=== PATIENT | female | born 1930 | race Caucasian/White ===

== ENCOUNTER 2017-04-13 05:09 | Inpatient (IN) | payer MEDICARE, OTHER ==
[~2017-04-13] VITALS: Ht 162.6 cm; Wt 57.6 kg
[2017-04-13] MEDS ORDERED: DONEPEZIL HCL 5 MG TABLET (05:29)
[2017-04-13] MEDS ORDERED: ATORVASTATIN 40 MG TABLET (05:29)
[2017-04-13] MEDS ORDERED: FUROSEMIDE 20 MG TABLET (05:29)
[2017-04-13] MEDS ORDERED: DILTIAZEM 180 MG (05:29)
[2017-04-13] MEDS ORDERED: DIGOXIN 125 MCG (05:29)
[2017-04-13] MEDS ORDERED: METOPROLOL TARTRATE 25 MG TAB (05:29)
[2017-04-13] MEDS ORDERED: IV NORMAL SALINE 1000 ML BAG IV ONE (06:00)
--- NOTE | 2017-04-13 06:00 | NUR ---
PT BIB . C/O COUGH X1 WEEK. HX OF TYPE 2 DM. UNSTEADY GAIT. USED WHEELCHAIR. A&OX4
--- NOTE | 2017-04-13 06:48 | NUR ---
Pt to room, changed into gown. EKG obtained and pt placed on monitor. Pt in rapid afib with runs of vtach. Dr. Peacock to bedside, pt moved to room 1b. Two IV's established. Lab at bedside.
[2017-04-13] MEDS ORDERED: PROCAINAMIDE HCL IV ONE (07:00)
--- NOTE | 2017-04-13 07:00 | NUR ---
Pharmacy called for the Procan
--- NOTE | 2017-04-13 07:04 | NUR ---
Pharmacy called, informed hospital does not carry this medication. Dr. Peacock notified.
--- NOTE | 2017-04-13 07:13 | NUR ---
Report given to ALCON Pittman
--- NOTE | 2017-04-13 07:17 | NUR ---
XRAY AT PT BEDSIDE
[2017-04-13] MEDS ORDERED: LIDOCAINE DRIP 2GM /D5W 500 ML 500 ML IV PRN (07:30)
[2017-04-13] MEDS ORDERED: LIDOCAINE 2% 100 MG/5 ML SYRINGE IV ONE (07:30)
[2017-04-13 07:39] LABS: BASOPHILS # (AUTO) 0.1 K/uL (0.0-8.0); BASOPHILS % (AUTO) 0.6 % (0.0-2.0); HEMATOCRIT 34.3 % (31.2-41.9); HEMOGLOBIN 11.6 g/dL (10.9-14.3); LYMPHOCYTES # (AUTO) 0.8 K/uL (20.0-40.0); LYMPHOCYTES % (AUTO) 9.2 % (20.5-51.5); MEAN CORPUSCULAR HEMOGLOBIN 30.1 uug (24.7-32.8); MEAN CORPUSCULAR HGB CONC 34 g/dL (32.3-35.6); MEAN CORPUSCULAR VOLUME 89.4 fL (75.5-95.3); MONOCYTES # (AUTO) 0.9 K/uL (2.0-10.0); MONOCYTES % (AUTO) 10.5 % (0.0-11.0); NEUTROPHILS % (AUTO) 79.7 % (38.5-71.5); PLATELET COUNT (AUTO) 152 K/uL (179-408); RED BLOOD CELL COUNT(AUTO) 3.84 MIL/uL (3.63-4.92); WHITE BLOOD COUNT (AUTO) 8.8 K/uL (3.8-11.8)
[2017-04-13] MEDS ORDERED: LIDOCAINE 2% 100 MG/5 ML SYRINGE ONE (07:46)
[2017-04-13] MEDS ORDERED: LIDOCAINE DRIP 2GM /D5W 500 ML 500 ML IV ONE (07:48)
[2017-04-13 07:55] LABS: CARBON DIOXIDE 26 mmol/L (21-32); CHLORIDE 101 mmol/L (98-107); CREATININE 0.9 mg/dL (0.6-1.3); GLUCOSE 143 mg/dL (74-106); POTASSIUM 3.6 mmol/L (3.5-5.1); UREA NITROGEN, BLOOD 16 mg/dL (7-18)
[2017-04-13 08:01] LABS: ALANINE AMINOTRANSFERASE 29 U/L (14-59); ALKALINE PHOSPHATASE 76 U/L (50-136); ASPARTATE AMINOTRANSFERASE 36 U/L (15-37); BILIRUBIN,DIRECT 0.4 mg/dL (0.0-0.2); BILIRUBIN,TOTAL 1.1 mg/dL (0.2-1.0); LIPASE 98 U/L (73-393); TOTAL PROTEIN, SERUM 6.3 g/dL (6.4-8.2)
[2017-04-13 08:07] LABS: DIGOXIN 0.3 ng/mL (0.9-2.0)
[2017-04-13] MEDS ORDERED: DILTIAZEM HCL 25 MG IV IV ONE ×2 (09:15→13:45)
[2017-04-13] MEDS ORDERED: DILTIAZEM HCL 25 MG IV ONE ×2 (09:27→14:07)
[2017-04-13] MEDS ORDERED: ATOR40TA PO (10:19)
[2017-04-13] MEDS ORDERED: DILT180T11 PO (10:19)
[2017-04-13] MEDS ORDERED: FURO20TA4 PO (10:19)
[2017-04-13] MEDS ORDERED: DONE5TAB34 PO (10:19)
[2017-04-13] MEDS ORDERED: ASPI-605 PO (10:19)
[2017-04-13] MEDS ORDERED: METF10002 PO (10:19)
[2017-04-13] MEDS ORDERED: METO25TA6 PO (10:19)
[2017-04-13] MEDS ORDERED: HYDROCODONE/APAP 5-325MG TABLET PO PRN (12:00)
[2017-04-13] MEDS ORDERED: MAGNESIUM HYDROXIDE 30 ML LIQUID UDC PO PRN (12:00)
[2017-04-13] MEDS ORDERED: ACETYLCYSTEINE 10% 4ML VIAL NEB ONE (12:00)
[2017-04-13] MEDS ORDERED: ONDANSETRON 4 MG/2 ML VIAL IV PRN (12:00)
[2017-04-13] MEDS ORDERED: LEVOFLOXACIN 750MG/D5W 750 MG in PREMIXED 1 EACH IV SCH (12:00)
[2017-04-13] MEDS ORDERED: IPRATROPIUM BROMIDE 0.5 MG/2.5 ML NEBU NEB ONE (12:00)
[2017-04-13] MEDS ORDERED: Z GUARD REMEDY PASTE 57 GM TUBE TOP PRN (12:00)
[2017-04-13] MEDS: ALBUTEROL SULFATE 2.5 MG/ 0.5 ML NEBU NEB SCH ×4 (12:15→23:05)
[2017-04-13] MEDS ORDERED: LEVOFLOXACIN 750MG/D5W 150 ML IV ONE (12:31)
[2017-04-13 12:36] LABS: *BILIRUBIN,URIN NEGATIVE (NEGATIVE); *BLOOD, URINE NEGATIVE (NEGATIVE); *CLARITY,URINE CLEAR (CLEAR); *COLOR,URINE YELLOW (YELLOW); *KETONES,URINE NEGATIVE (NEGATIVE); *PROTEIN,URINE NEGATIVE (NEGATIVE); LEUKOCYTE ESTERASE ,URINE NEGATIVE (NEGATIVE); NITRITE, URINE NEGATIVE (NEGATIVE); PH,URINE 5.5 (5.0-8.0); UGLUCOSE NEGATIVE (NEGATIVE)
[2017-04-13] MEDS ORDERED: IPRATROPIUM BROMIDE 0.5 MG/2.5 ML NEBU ONE (12:38)
[2017-04-13 12:54] LABS: BACTERIA,URINE NONE SEEN /HPF (NONE SEEN); RBC,URINE 0-3 /HPF (0-3); SQUAMOUS EPITHELIAL CELL,UR FEW /HPF (NONE SEEN); WBC,URINE 0-3 /HPF (0-3)
[2017-04-13] MEDS ORDERED: ACETYLCYSTEINE 20% 800 MG/4 ML VIAL ONE (13:11)
[2017-04-13] MEDS ORDERED: DIGOXIN 500 MCG/2 ML AMP IV ONE (14:30)
[2017-04-13] MEDS: DILTIAZEM HCL CD 180 MG CAP.SR.24H PO SCH (14:43)
[2017-04-13] MEDS ORDERED: DILTIAZEM HCL 90 MG TABLET ONE (14:43)
[2017-04-13] MEDS ORDERED: DIGOXIN 500 MCG/2 ML AMP ONE (14:45)
[2017-04-13] MEDS: ASPIRIN 81 MG TAB.CHEW PO SCH ×2 (14:50→14:54)
[2017-04-13] MEDS ORDERED: ASPIRIN 81 MG TAB.CHEW ONE (15:01)
--- NOTE | 2017-04-13 15:24 | NUR ---
REPORT WAS GIVEN TO MECHANICAL TEST ENGINEER. PT WAS TRANSFERED TO TELEMETRY ROOM #205.
[2017-04-13 16:00] VITALS: BP 89/47
--- NOTE | 2017-04-13 16:30 | NUR ---
RECEIVED PATIENT FR ED 86 YEARS OLD FEMALE WITH DX OF CHF TO ROOM 205 PATIENT ABLE TO AMBULATE FORM THE GURNEY IN FRONT OF HER ROOM TO HER BED MADE COMFORTABLE.PATIENT IS ALERT AND ORIENTED ABLE TO ASSIST WITH THE ADMISSION PROTOCOL ORIENTED TO HER ROOM AND HOSPITAL SHE HAS OCCASSIONAL DRY COUGH STATED FEELS THAT SHE HAS PHLEGM BUT IS UNABLE TO EXPECTORATE.ON O2 AT 2L/M BY NASAL CANULLA WITH NO SHORTNESS OF BREATH AT THIS TIME.PATIENT HAS 402 DOLLARS IN COLES AND REFUSED TO PUT THE MONEY INTO THE SAFE AT THIS TIME.ENCOURAGED HER TO MAY BE GIVE IT TO HER FRIENT WHEN SHE COMES TO VISIT STATED WILL CONSIDER IT.
[2017-04-13] MEDS: ACETYLCYSTEINE 10% 4ML VIAL NEB SCH ×2 (20:00→20:01)
[2017-04-13 20:40] VITALS: BP 94/54
[2017-04-14] MEDS: ACETYLCYSTEINE 10% 4ML VIAL NEB SCH ×4 (00:01→22:22)
[2017-04-14] MEDS ORDERED: ACETYLCYSTEINE 20% 800 MG/4 ML VIAL ONE (00:10)
[2017-04-14] MEDS ORDERED: ACETYLCYSTEINE 10% 4ML VIAL ONE (00:18)
[2017-04-14 00:38] VITALS: BP 98/57
[2017-04-14] MEDS: ALBUTEROL SULFATE 2.5 MG/ 0.5 ML NEBU NEB SCH ×6 (03:05→22:22)
--- NOTE | 2017-04-14 03:25 | NUR ---
COUGHING MOST OF THE TIME.SLEPT AT LONG INTERVALS,NO COMPLAINTS.
[2017-04-14 04:00] VITALS: BP 101/50
--- NOTE | 2017-04-14 06:59 | NUR ---
heart rate up to 140 when patient walking,back to atrial fib 85.
[2017-04-14 07:23] LABS: BASOPHILS % (AUTO) 0.5 % (0.0-2.0); EOSINOPHILS % (AUTO) 0.1 % (0.0-7.0); HEMATOCRIT 32.3 % (31.2-41.9); HEMOGLOBIN 10.8 g/dL (10.9-14.3); LYMPHOCYTES # (AUTO) 0.7 K/uL (20.0-40.0); LYMPHOCYTES % (AUTO) 10.8 % (20.5-51.5); MEAN CORPUSCULAR HGB CONC 34 g/dL (32.3-35.6); MEAN CORPUSCULAR VOLUME 89.7 fL (75.5-95.3); MONOCYTES # (AUTO) 0.6 K/uL (2.0-10.0); NEUTROPHILS % (AUTO) 79.6 % (38.5-71.5); PLATELET COUNT (AUTO) 131 K/uL (179-408); WHITE BLOOD COUNT (AUTO) 6.3 K/uL (3.8-11.8)
[2017-04-14 07:34] LABS: CARBON DIOXIDE 27 mmol/L (21-32); CHLORIDE 103 mmol/L (98-107); CHOLESTEROL 68 mg/dL (<200); CREATININE 0.8 mg/dL (0.6-1.3); GLUCOSE 195 mg/dL (74-106); HDL CHOLESTEROL 39 mg/dL (40-60); MAGNESIUM 1.9 mg/dL (1.8-2.4); PHOSPHOROUS 2.3 mg/dL (2.5-4.9); POTASSIUM 3.4 mmol/L (3.5-5.1); TRIGLYCERIDES 58 MG/DL (30-150); UREA NITROGEN, BLOOD 14 mg/dL (7-18)
--- NOTE | 2017-04-14 07:48 | NUR ---
PATIENT IS AWAKE ALERT AND ORIENTED DENIES PAIN OR DISCOMFORTS AT THIS TIME SHE IS WITH O2 ORDERED DENIES SHORTNESS OF BREATH MADE COMFORTABLE AND WILL CONTINUE TO OBSERVE.
[2017-04-14] MEDS: FUROSEMIDE 20 MG TABLET PO SCH (08:43)
[2017-04-14] MEDS: DIGOXIN 125 MCG TABLET PO SCH (08:43)
[2017-04-14] MEDS: ASPIRIN 81 MG TAB.CHEW PO SCH (08:43)
[2017-04-14] MEDS: DILTIAZEM HCL CD 180 MG CAP.SR.24H PO SCH (08:44)
--- NOTE | 2017-04-14 09:00 | NUR ---
PATIENT INFORMED ME THAT SHE SENT HER MONEY THE EVENING BEFORE FOR SAFE KEEPING.
[2017-04-14 11:37] VITALS: BP 112/60
[2017-04-14] MEDS ORDERED: POTASSIUM CHLORIDE 20 MEQ TAB.PRT.SR PO ONE (12:30)
[2017-04-14] MEDS: GUAIFENESIN/CODEINE 5 ML LIQUID UDC PO PRN ×2 (12:53→20:37)
--- NOTE | 2017-04-14 12:54 | NUR ---
NOTED PEROIDS OF COUGHING AND PATIENT IS FEELING EXHAUSTED FROM CONSTANT COUGHING AND HER POTASSIUM LEVEL IS 3.4 CALLED AND NOTIFIED MYRANDA CAZARES MILL TENDER WARM UP WITH NEW ORDERS AND NOTED.
--- NOTE | 2017-04-14 14:00 | NUR ---
CALL RECEIVED FROM THE LAB BY GLENDA STATED THAT SHE HAS A PRELIMINARY RESULT OF POSITIVE BLOOD CULTURE FROM ONE BOTTLE WITH GRAM POSITIVE COCCI IN CLUSTERS CALLED GILL HOFF AND NOTIFIED HER WITH NO NEW ORDERS AT THIS TIME.
[2017-04-14] MEDS ORDERED: NEUTRA PHOS PACKET PO ONE (15:45)
[2017-04-14 15:53] VITALS: BP 104/59
--- NOTE | 2017-04-14 18:00 | NUR ---
RESTING IN HER BED WITH HER FRIEND AT HER BEDSIDE COUGH IS SUBSIDING STATED THAT THE PAIN MEDICATIONS HELPED HER AND THAT SHE WANTS TO TAKE SOME MORE TONITE BEFORE SHE GOES TO BED WILL ENDORSE.
--- NOTE | 2017-04-14 19:37 | NUR ---
RECEIVED SHIFT REPORT FROM DAY SHIFT NURSE. PATIENT RESTING COMFORTABLY IN BED STABLE CONDITION, NO S/S OF DISTRESS. BED IN LOCKED LOW POSITION, SIDE RAILS UP X2, BED ALARM ON, CALL LIGHT WITHIN REACH. SAFETY AND COMFORT WILL BE PROVIDED THROUGHOUT SHIFT.
[2017-04-14 20:00] VITALS: BP 93/46
[2017-04-15 00:32] VITALS: BP 123/66
[2017-04-15] MEDS: ALBUTEROL SULFATE 2.5 MG/ 0.5 ML NEBU NEB SCH ×6 (03:09→23:09)
[2017-04-15 04:00] VITALS: BP 105/52
[2017-04-15] MEDS: ACETYLCYSTEINE 10% 4ML VIAL NEB SCH ×3 (07:06→23:09)
[2017-04-15 07:18] LABS: CARBON DIOXIDE 28 mmol/L (21-32); CHLORIDE 104 mmol/L (98-107); CREATININE 0.8 mg/dL (0.6-1.3); GLUCOSE 150 mg/dL (74-106); MAGNESIUM 1.7 mg/dL (1.8-2.4); PHOSPHOROUS 3.1 mg/dL (2.5-4.9); POTASSIUM 3.7 mmol/L (3.5-5.1); UREA NITROGEN, BLOOD 11 mg/dL (7-18)
[2017-04-15 07:28] LABS: BASOPHILS % (AUTO) 0.3 % (0.0-2.0); EOSINOPHILS # (AUTO) 0.1 K/uL (0.0-0.7); EOSINOPHILS % (AUTO) 1.5 % (0.0-7.0); HEMATOCRIT 35.2 % (31.2-41.9); HEMOGLOBIN 11.9 g/dL (10.9-14.3); LYMPHOCYTES % (AUTO) 16.5 % (20.5-51.5); MEAN CORPUSCULAR HEMOGLOBIN 30.2 uug (24.7-32.8); MEAN CORPUSCULAR HGB CONC 34 g/dL (32.3-35.6); MEAN CORPUSCULAR VOLUME 89.3 fL (75.5-95.3); MONOCYTES # (AUTO) 0.5 K/uL (2.0-10.0); MONOCYTES % (AUTO) 7.5 % (0.0-11.0); NEUTROPHILS # (AUTO) 4.6 K/uL (1.8-8.9); NEUTROPHILS % (AUTO) 74.2 % (38.5-71.5); PLATELET COUNT (AUTO) 138 K/uL (179-408); RED BLOOD CELL COUNT(AUTO) 3.94 MIL/uL (3.63-4.92); WHITE BLOOD COUNT (AUTO) 6.2 K/uL (3.8-11.8)
--- NOTE | 2017-04-15 07:39 | NUR ---
PATIENT IS AWAKE ALERT AND ORIENTED WITH OCCASSIONAL MILD COUGHING AT THIS TIME REMAIN ON TELE MONITORING DENIES PAIN OR DISCOMFORTS.ON O2 AT 2L/M WITH NO SHORTNESS OF BREATH MADE COMFORTABLE AND WILL CONTINUE TO OBSERVE.
[2017-04-15] MEDS: FUROSEMIDE 20 MG TABLET PO SCH (08:00)
[2017-04-15] MEDS: DIGOXIN 125 MCG TABLET PO SCH (08:01)
[2017-04-15] MEDS: ASPIRIN 81 MG TAB.CHEW PO SCH (08:01)
[2017-04-15] MEDS: DILTIAZEM HCL CD 180 MG CAP.SR.24H PO SCH (08:01)
[2017-04-15] MEDS: LEVOFLOXACIN 750MG/D5W 750 MG in PREMIXED 1 EACH IV SCH (08:33)
--- NOTE | 2017-04-15 10:30 | NUR ---
PATIENT SEEN BY THE PHYSICAL THERAPY FOR AMBULATION AND TOLERATED AMBULATING IN THE HALLWAY WITH FAIR ENDURANCE AND SEATED UP ON THE CHAIR IN ROOM AND TOLERATED WELL.
--- NOTE | 2017-04-15 11:00 | NUR ---
REMAIN ON IV ANTIBIOTICS ORDERED WITH NO ADVERSE OR ALLERGIC REACTIONS AT THIS TIME.
[2017-04-15] MEDS ORDERED: MAGNESIUM OXIDE 400 MG TABLET PO ONE (11:30)
[2017-04-15 11:42] VITALS: BP 105/58
--- NOTE | 2017-04-15 15:24 | NUR ---
SEN BY MYRANDA HOFF PATIENT INFORMED HER THAT SHE STILL FEELS WEAK BUT GETTING BETTER MAGNESSIUM LEVEL IS 1.7 WITH 400 MILLIGRAM OF MAG OX GIVEN ORDERED. ASSISTED NEEDED AND MADE COMFORTABLE.
[2017-04-15 15:40] VITALS: BP_SYST 112
--- NOTE | 2017-04-15 17:45 | NUR ---
APPETITE IS POOR FOOD BROUGHT IN BY HER FRIEND ATTEMPTING TO EAT STATED DOES NOT FEEL HUNGRY FLUIDS TOLERATED WELL.MADE COMFORTABLE.
[2017-04-15] MEDS ORDERED: VANCOMYCIN IV 1 G in PREMIXED 0 EACH IV ONE (18:30)
[2017-04-15] MEDS: IPRATROPIUM BROMIDE 0.5 MG/2.5 ML NEBU NEB PRN ×2 (19:02→23:09)
--- NOTE | 2017-04-15 19:47 | NUR ---
PATIENT RESTING COMFORTABLY IN BED. O2 SATURATION IS AT 90% ON 4L O2. WILL MENTION TO RESPIRATORY THAT PATIENT IS A MOUTH BREATHER. VITAL SIGNS STABLE. NO S/S OF DISTRESS. FLORES IN PLACE AND PATENT. BED ALARM ON, BED IN LOCKED/LOW POSITION WITH SIDE RAILS UP X2. SAFETY/COMFORT WILL BE PROVIDED.
[2017-04-15 20:00] VITALS: BP 130/56
[2017-04-15] MEDS: ATORVASTATIN 40 MG TABLET PO SCH (20:36)
[2017-04-15] MEDS: ACETAMINOPHEN 325 MG TABLET PO PRN (20:36)
[2017-04-15] MEDS: METOPROLOL TARTRATE 25 MG TABLET PO SCH (20:37)
[2017-04-15] MEDS: GUAIFENESIN/CODEINE 5 ML LIQUID UDC PO PRN (20:39)
--- NOTE | 2017-04-15 22:56 | NUR ---
HR ELEVATED UP TO 120s-130s SEVERAL HOURS AGO BUT NOW SUSTAINING BELOW 100. WILL CONTINUE TO MONITOR PATIENT. PATIENT'S TEMPERATURE ELEVATED. TYLENOL 650 MG PO ADMINISTERED. PATIENT REQUESTED FOR COUGH MEDICATION: ROBUTUSSIN AC ADMINISTERED TO PATIENT. STABLE CONDITION, NO S/S DISTRESS. VSS.
[2017-04-16 00:25] VITALS: BP 136/52
[2017-04-16] MEDS: IPRATROPIUM BROMIDE 0.5 MG/2.5 ML NEBU NEB PRN ×4 (03:01→23:00)
[2017-04-16] MEDS: ALBUTEROL SULFATE 2.5 MG/ 0.5 ML NEBU NEB SCH ×6 (03:01→23:00)
[2017-04-16 04:00] VITALS: BP 117/72
--- NOTE | 2017-04-16 06:24 | NUR ---
PATIENT RESTING COMFORTABLY IN BED. COUGH HAS SLIGHTLY DECREASED. BREATHING TREATMENT PROVIDED BY RT THROUGH SHIFT. TEMPERATURE ELEVATED AT 100.4 AT BEGINNING OF SHIFT BUT HAS DECREASED TO 98.8. STABLE CONDITION, NO S/S OF DISTRESS, VSS. D/C OF TELEMETRY. ANTIBIOTICS ADMINISTERED. RAPID INFLUENZA OBTAINED AND IS NEGATIVE. BED IN LOCKED/LOW POSITION, SIDE RAILS UP X2, CALL LIGHT WITHIN REACH.
[2017-04-16] MEDS: ACETYLCYSTEINE 10% 4ML VIAL NEB SCH ×3 (07:13→23:00)
--- NOTE | 2017-04-16 07:51 | NUR ---
PATIENT IS AWAKE ALERT AND ORIENTED CONTINUES TO COUGH ON AND OFF WAS GIVEN SOME COUGH MEDICATIONS BUT DID NOT WANT ANY AT THE MOMENT.ON O2 BY NASAL CANULLA WITH NO SHORTNESS OF BREATH REMAIN ON ANTIBIOTICS ORDERED WITH NO ADVERSE OR ALLERGIC REACTIONS AT THIS TIME.CALL LIGHTS ARE WITHIN EASY REACH AT THIS TIME AND WILL CONTINUE TO OBSERVE.
[2017-04-16] MEDS: FUROSEMIDE 20 MG TABLET PO SCH (09:27)
[2017-04-16] MEDS: DIGOXIN 125 MCG TABLET PO SCH (09:27)
[2017-04-16] MEDS: ASPIRIN 81 MG TAB.CHEW PO SCH (09:27)
[2017-04-16] MEDS: DILTIAZEM HCL CD 180 MG CAP.SR.24H PO SCH (09:28)
[2017-04-16] MEDS: METOPROLOL TARTRATE 25 MG TABLET PO SCH ×2 (09:28→20:40)
[2017-04-16 11:43] VITALS: BP 137/98
--- NOTE | 2017-04-16 14:00 | NUR ---
CHEST XRAY ORDERED AWAITING FOR RESULTS.PATIENT IS RESTING IN HER BED WITH NO COMPLAINTS AT THIS TIME. WILL CONTINUE TO OBSERVE.
[2017-04-16 15:52] VITALS: BP 119/69
--- NOTE | 2017-04-16 17:28 | NUR ---
REMAIN ON O2 TO MAINTAIN SATURATION ABOVE 94% NO SHORTNESS OF BREATH AT THIS TIME.
--- NOTE | 2017-04-16 18:33 | NUR ---
CONTINUES TO HAVE LOW GRADE FEVER PATIENT ENCOURAGED TO DRINK MORE FLUIDS AND EXPRESSED UNDERSTANDING.
--- NOTE | 2017-04-16 19:42 | NUR ---
RECEIVED SHIFT REPORT FROM DAY SHIFT NURSE. PATIENT IN STABLE CONDITION, NO S/S OF DISTRESS, VITAL SIGNS STABLE. RECEIVED BREATHING TREATMENT. RESTING COMFORTABLY IN BED. BED IN LOCKED/LOW POSITION, SIDE RAILS UP X2, CALL LIGHT WITHIN REACH. SAFETY/COMFORT WILL BE PROVIDED.
[2017-04-16 20:00] VITALS: BP 125/54
[2017-04-16] MEDS: ACETAMINOPHEN 325 MG TABLET PO PRN (20:40)
[2017-04-16] MEDS: ATORVASTATIN 40 MG TABLET PO SCH (20:40)
[2017-04-16] MEDS: GUAIFENESIN/CODEINE 5 ML LIQUID UDC PO PRN (20:41)
[2017-04-17] MEDS: IPRATROPIUM BROMIDE 0.5 MG/2.5 ML NEBU NEB PRN (03:04)
[2017-04-17] MEDS: ALBUTEROL SULFATE 2.5 MG/ 0.5 ML NEBU NEB SCH ×4 (03:04→14:58)
[2017-04-17 04:47] VITALS: BP 115/72
--- NOTE | 2017-04-17 06:25 | NUR ---
PATIENT SLEPT THROUGH MAJORITY OF THE NIGHT. THE MOST SLEEP PATIENT HAS GOTTEN THROUGHOUT HOSPITAL STAY. STABLE CONDITION, NO S/S OF DISTRESS. VSS. TEMPERATURE ELEVATED AT BEGINNINGOF SHIFT BUT WNL AT THIS MOMENT. BED IN LOCKED/LOW POSITION, SIDE RAILS UP X2, CALL LIGHT WITHIN REACH. SAFETY/COMFORT IMPLEMENTED THROUGHOUT SHIFT.
[2017-04-17] MEDS: ACETYLCYSTEINE 10% 4ML VIAL NEB SCH ×2 (07:18→14:58)
[2017-04-17] MEDS: ASPIRIN 81 MG TAB.CHEW PO SCH (08:25)
[2017-04-17] MEDS: FUROSEMIDE 20 MG TABLET PO SCH (08:25)
[2017-04-17] MEDS: DIGOXIN 125 MCG TABLET PO SCH (08:25)
[2017-04-17] MEDS: DILTIAZEM HCL CD 180 MG CAP.SR.24H PO SCH (08:26)
[2017-04-17] MEDS: METOPROLOL TARTRATE 25 MG TABLET PO SCH (08:26)
[2017-04-17] MEDS: LEVOFLOXACIN 750MG/D5W 750 MG in PREMIXED 1 EACH IV SCH (08:26)
[2017-04-17 09:07] LABS: BASOPHILS % (AUTO) 0.5 % (0.0-2.0); EOSINOPHILS # (AUTO) 0.1 K/uL (0.0-0.7); EOSINOPHILS % (AUTO) 2.1 % (0.0-7.0); HEMATOCRIT 37.2 % (31.2-41.9); HEMOGLOBIN 12.9 g/dL (10.9-14.3); LYMPHOCYTES # (AUTO) 1.4 K/uL (20.0-40.0); LYMPHOCYTES % (AUTO) 41.8 % (20.5-51.5); MEAN CORPUSCULAR HEMOGLOBIN 30.6 uug (24.7-32.8); MEAN CORPUSCULAR HGB CONC 35 g/dL (32.3-35.6); MEAN CORPUSCULAR VOLUME 88.6 fL (75.5-95.3); MONOCYTES # (AUTO) 0.4 K/uL (2.0-10.0); MONOCYTES % (AUTO) 13.3 % (0.0-11.0); NEUTROPHILS # (AUTO) 1.4 K/uL (1.8-8.9); NEUTROPHILS % (AUTO) 42.3 % (38.5-71.5); PLATELET COUNT (AUTO) 158 K/uL (179-408)
[2017-04-17 09:16] LABS: WHITE BLOOD COUNT (AUTO) 3.2 K/uL (3.8-11.8)
[2017-04-17 09:24] LABS: ALANINE AMINOTRANSFERASE 43 U/L (14-59); ALKALINE PHOSPHATASE 85 U/L (50-136); ASPARTATE AMINOTRANSFERASE 62 U/L (15-37); BILIRUBIN,TOTAL 0.5 mg/dL (0.2-1.0); CARBON DIOXIDE 28 mmol/L (21-32); CHLORIDE 101 mmol/L (98-107); CREATININE 0.8 mg/dL (0.6-1.3); GLUCOSE 178 mg/dL (74-106); MAGNESIUM 1.7 mg/dL (1.8-2.4); PHOSPHOROUS 3.1 mg/dL (2.5-4.9); POTASSIUM 3.2 mmol/L (3.5-5.1); TOTAL PROTEIN, SERUM 6.7 g/dL (6.4-8.2); UREA NITROGEN, BLOOD 10 mg/dL (7-18)
[2017-04-17] MEDS ORDERED: MAGNESIUM OXIDE 400 MG TABLET PO ONE (11:30)
[2017-04-17] MEDS ORDERED: METFORMIN HCL 500 MG TABLET PO SCH (11:30)
[2017-04-17] MEDS ORDERED: POTASSIUM CHLORIDE 20 MEQ TAB.PRT.SR PO ONE (11:30)
[2017-04-17 11:35] VITALS: BP 107/70
--- NOTE | 2017-04-17 12:37 | NUR ---
POTASSIUM LEVEL IS 3.2 AND MAGNESSIUM IS 1.7 WITH ORDERS AND NOTED.
[2017-04-17 15:42] VITALS: BP 119/75
--- NOTE | 2017-04-17 16:10 | NUR ---
ORDER NOTED TO DISCHARGE PATIENT HOME TODAY AND PER THE BED AND BREAKFAST OPERATOR PATIENT WILL BE PICKED UP BY HER SIGNIFICANT OTHER BY 1700 TODAY
[2017-04-17] MEDS ORDERED: GLIP5TAB13 PO (16:11)
[2017-04-17] MEDS ORDERED: ATOR10TA PO (16:11)
[2017-04-17] MEDS ORDERED: LEVO500T2 PO (16:11)
--- NOTE | 2017-04-17 17:44 | NUR ---
PATIENT DISCHARGED PICKED UP BY HER FRIEND INSTEAD OF HER SIGNIFICANT OTHER IN SATISFACTORY CONDITION WITH DISCHARGE INSTRUCTIONS AND PRESCRIPTIONS AND ALL OF HER PERSONAL BELONGINGS AND PATIENT INSTRUCTED TO FOLLOW UP WITH HER PRIMARY AND OUTPATIENT CLERK OFFERED TO MAKE AN APPOINTMENT FOR HER TO SEE HER OUTPATIENT CLERK STATED THAT SHE WILL GO HOME FIRST SEE HOW SHE FEELS AND WILL THEN DECIDE WHICH DAY SHE WILL BE ABLE TO GO.
== END 2017-04-17 17:45 | disposition home health service (06) | DRG 871 ==
LOC: ER 05:17 → TRANSITION 12:12 → MED 15:19 → TELE 15:48 → MED 04-15 23:30
PROVIDERS: ATTEND Nurse Practitioner Acute Care
DX: A41.9 Sepsis, unspecified organism (principal); I21.A1 Myocardial infarction type 2; G93.40 Encephalopathy, unspecified; E44.0 Moderate protein-calorie malnutrition; I50.33 Acute on chronic diastolic (congestive) heart failure; J44.0 Chronic obstructive pulmonary disease with (acute) lower respiratory infection; I48.2 Chronic atrial fibrillation; F03.90 Unspecified dementia, unspecified severity, without behavioral disturbance, psychotic disturbance, mood disturbance, and anxiety; I44.7 Left bundle-branch block, unspecified; E11.65 Type 2 diabetes mellitus with hyperglycemia; J20.8 Acute bronchitis due to other specified organisms; I11.0 Hypertensive heart disease with heart failure; Z79.82 Long term (current) use of aspirin; Z79.84 Long term (current) use of oral hypoglycemic drugs; Z79.899 Other long term (current) drug therapy; Z68.21 Body mass index [BMI] 21.0-21.9, adult; T46.0X6A Underdosing of cardiac-stimulant glycosides and drugs of similar action, initial encounter; Y92.009 Unspecified place in unspecified non-institutional (private) residence as the place of occurrence of the external cause; I25.10 Atherosclerotic heart disease of native coronary artery without angina pectoris; B96.89 Other specified bacterial agents as the cause of diseases classified elsewhere
CPT/HCPCS: 36415; 70030-TC; 71045; 83605; 83690; 83735; 84100; 85025; 85730; 87040; 87086; 87400; 93005; 94640; A4663; J1160; J1956; J2001; J2690; J3370; J3490; J3590; J7030; J7042; J7050

== ENCOUNTER 2017-06-08 09:50 | Inpatient (IN) | payer MEDICARE, OTHER ==
[~2017-06-08] VITALS: Ht 162.6 cm; Wt 57.6 kg
[~2017-06-08 09:50] MED LIST: ASPI-605 PO; ATOR10TA PO; DIGOXIN 125 MCG; DILT180T11 PO; DONE5TAB34 PO; FURO20TA4 PO; GLIP5TAB13 PO; LEVO500T2 PO; METF10004 PO; METO25TA6 PO
--- NOTE | 2017-06-08 10:12 | NUR ---
pt is in room #1b. dr cook evaluated the pt.
[2017-06-08 10:21] LABS: BASOPHILS # (AUTO) 0.1 K/uL (0.0-8.0); BASOPHILS % (AUTO) 0.7 % (0.0-2.0); EOSINOPHILS # (AUTO) 0.1 K/uL (0.0-0.7); EOSINOPHILS % (AUTO) 0.5 % (0.0-7.0); HEMATOCRIT 41.2 % (31.2-41.9); HEMOGLOBIN 13.7 g/dL (10.9-14.3); LYMPHOCYTES # (AUTO) 1.5 K/uL (20.0-40.0); LYMPHOCYTES % (AUTO) 14.4 % (20.5-51.5); MEAN CORPUSCULAR HEMOGLOBIN 30.2 uug (24.7-32.8); MEAN CORPUSCULAR HGB CONC 33 g/dL (32.3-35.6); MEAN CORPUSCULAR VOLUME 90.8 fL (75.5-95.3); MONOCYTES # (AUTO) 0.7 K/uL (2.0-10.0); MONOCYTES % (AUTO) 6.7 % (0.0-11.0); NEUTROPHILS # (AUTO) 8.1 K/uL (1.8-8.9); NEUTROPHILS % (AUTO) 77.7 % (38.5-71.5); PLATELET COUNT (AUTO) 150 K/uL (179-408); RED BLOOD CELL COUNT(AUTO) 4.53 MIL/uL (3.63-4.92); WHITE BLOOD COUNT (AUTO) 10.4 K/uL (3.8-11.8)
[2017-06-08 10:33] LABS: CARBON DIOXIDE 23 mmol/L (21-32); CHLORIDE 102 mmol/L (98-107); CREATININE 0.9 mg/dL (0.6-1.3); POTASSIUM 4.2 mmol/L (3.5-5.1); UREA NITROGEN, BLOOD 19 mg/dL (7-18)
[2017-06-08 10:38] LABS: GLUCOSE 301 mg/dL (74-106)
[2017-06-08 10:55] LABS: ALANINE AMINOTRANSFERASE 55 U/L (14-59); ALKALINE PHOSPHATASE 105 U/L (50-136); ASPARTATE AMINOTRANSFERASE 50 U/L (15-37); BILIRUBIN,DIRECT 0.4 mg/dL (0.0-0.2); BILIRUBIN,TOTAL 1.2 mg/dL (0.2-1.0)
[2017-06-08] MEDS ORDERED: DILTIAZEM HCL 25 MG IV IV ONE (11:00)
[2017-06-08] MEDS ORDERED: FUROSEMIDE 20 MG/2 ML VIAL IV ONE (11:00)
[2017-06-08] MEDS ORDERED: DILTIAZEM HCL 25 MG IV ONE (11:04)
[2017-06-08] MEDS ORDERED: FUROSEMIDE 40 MG/4 ML VIAL ONE (11:05)
[2017-06-08] MEDS ORDERED: INSULIN REGULAR, HUMAN 1,000 UNITS/10 ML VIAL SUBCUT ONE (11:15)
[2017-06-08] MEDS ORDERED: INSULIN REGULAR, HUMAN 300 UNIT/3 ML VIAL ONE (11:21)
--- NOTE | 2017-06-08 11:22 | NUR ---
PHARMACY NOTE; I MALCOM URBINA RN DRAW 6UNITS NPH INSULIN.
--- NOTE | 2017-06-08 11:57 | NUR ---
REPORT WAS GIVEN TO HIGH SCHOOL ACADEMIC COACH. PT WAS TRANSFERED TO TELEMETRY ROOM #217.
[2017-06-08 12:46] VITALS: BP 126/87
[2017-06-08] MEDS ORDERED: Z GUARD REMEDY PASTE 57 GM TUBE TOP PRN (13:45)
[2017-06-08] MEDS ORDERED: HYDROCODONE/APAP 5-325MG TABLET PO PRN (13:45)
[2017-06-08] MEDS ORDERED: ZOLPIDEM 5 MG TABLET PO PRN (13:45)
[2017-06-08] MEDS ORDERED: ONDANSETRON 4 MG/2 ML VIAL IV PRN (13:45)
[2017-06-08] MEDS ORDERED: MAGNESIUM HYDROXIDE 30 ML LIQUID UDC PO PRN (13:45)
[2017-06-08] MEDS ORDERED: ACETAMINOPHEN 325 MG TABLET PO PRN (13:45)
[2017-06-08] MEDS ORDERED: INSULIN REGULAR, HUMAN 300 UNITS/3 ML VIAL SQ PRN (13:45)
[2017-06-08] MEDS ORDERED: DEXTROSE 50% 50 ML DISP.SYRIN IV PRN (13:45)
[2017-06-08 15:38] VITALS: BP 123/81
[2017-06-08] MEDS: BLOOD SUGAR DIAGNOSTIC 1 EACH STRIP VI SCH ×2 (16:43→20:01)
[2017-06-08] MEDS: INSULIN REGULAR, HUMAN 300 UNIT/3 ML VIAL SQ PRN (16:49)
[2017-06-08] MEDS ORDERED: METOPROLOL TARTRATE 25 MG TABLET PO SCH (17:00)
[2017-06-08] MEDS: METFORMIN HCL 500 MG TABLET PO SCH (17:04)
[2017-06-08] MEDS: METOPROLOL TARTRATE 50 MG TABLET PO SCH (17:08)
[2017-06-08] MEDS: DILTIAZEM HCL 60 MG TABLET PO SCH (17:08)
--- NOTE | 2017-06-08 18:35 | NUR ---
PT OBSERVED RESTING IN BED WITH NO SIGNS OF RESPIRATORY DISTRESS. PT HAS AFIB/ FLUTTER HEART RATE RANGES 105-145. CONTINUE TO MONITOR PT.
--- NOTE | 2017-06-08 19:25 | NUR ---
Received pt in bed. AAO x4. Denies any pain or SOB at this time. Not in acute distress. On O2 at 2LPM via NC. IV site on right FA intact and patent. A. Fib at 74. Bed on low and lock position. Safety measure initiated and call wu within reached.
[2017-06-08] MEDS: ATORVASTATIN 10 MG TABLET PO SCH (19:55)
[2017-06-08 20:00] VITALS: BP 105/67
--- NOTE | 2017-06-08 20:00 | NUR ---
Patient claimed she is in a lot of leg pain, screaming. . Repositioned for comfort. Pillow in placed under legs. Patient stated her pain was gone. Refused pain meds offered.
[2017-06-08] MEDS ORDERED: METOPROLOL TARTRATE 50 MG TABLET PO SCH (21:00)
[2017-06-09] VITALS: BP 104/67
[2017-06-09] MEDS: DILTIAZEM HCL 60 MG TABLET PO SCH ×4 (00:21→17:04)
[2017-06-09] MEDS: METOPROLOL TARTRATE 50 MG TABLET PO SCH ×4 (00:22→17:05)
--- NOTE | 2017-06-09 00:34 | NUR ---
Received Lactic acid result 3.5 at 2330, texted to Brenda Clemens NP, no new order received. Charge nurse aware.
[2017-06-09 04:00] VITALS: BP 106/70
[2017-06-09] MEDS: BLOOD SUGAR DIAGNOSTIC 1 EACH STRIP VI SCH ×5 (05:33→21:02)
--- NOTE | 2017-06-09 05:36 | NUR ---
Slept well. No complaint presented all night. All needs attended and met. Continue care as planned.
[2017-06-09 06:41] LABS: BASOPHILS # (AUTO) 0.1 K/uL (0.0-8.0); BASOPHILS % (AUTO) 0.8 % (0.0-2.0); EOSINOPHILS # (AUTO) 0.2 K/uL (0.0-0.7); EOSINOPHILS % (AUTO) 2.1 % (0.0-7.0); HEMATOCRIT 38.6 % (31.2-41.9); LYMPHOCYTES # (AUTO) 2.5 K/uL (20.0-40.0); LYMPHOCYTES % (AUTO) 33.8 % (20.5-51.5); MEAN CORPUSCULAR HEMOGLOBIN 30.6 uug (24.7-32.8); MEAN CORPUSCULAR HGB CONC 34 g/dL (32.3-35.6); MEAN CORPUSCULAR VOLUME 90.9 fL (75.5-95.3); MONOCYTES # (AUTO) 0.6 K/uL (2.0-10.0); MONOCYTES % (AUTO) 7.9 % (0.0-11.0); NEUTROPHILS # (AUTO) 4.1 K/uL (1.8-8.9); NEUTROPHILS % (AUTO) 55.4 % (38.5-71.5); PLATELET COUNT (AUTO) 144 K/uL (179-408); RED BLOOD CELL COUNT(AUTO) 4.25 MIL/uL (3.63-4.92); WHITE BLOOD COUNT (AUTO) 7.3 K/uL (3.8-11.8)
[2017-06-09 06:55] LABS: CARBON DIOXIDE 28 mmol/L (21-32); CHLORIDE 103 mmol/L (98-107); CREATININE 0.9 mg/dL (0.6-1.3); DIGOXIN < 0.2 ng/mL (0.9-2.0); GLUCOSE 160 mg/dL (74-106); MAGNESIUM 1.8 mg/dL (1.8-2.4); PHOSPHOROUS 3.9 mg/dL (2.5-4.9); POTASSIUM 3.7 mmol/L (3.5-5.1); UREA NITROGEN, BLOOD 20 mg/dL (7-18)
[2017-06-09] MEDS: METFORMIN HCL 500 MG TABLET PO SCH ×2 (07:53→17:04)
[2017-06-09] MEDS: FUROSEMIDE 20 MG/2 ML VIAL IV SCH (08:00)
[2017-06-09] MEDS: ASPIRIN EC 81 MG TABLET.DR PO SCH (08:02)
[2017-06-09] MEDS: DONEPEZIL 5 MG TABLET PO SCH (08:02)
[2017-06-09] MEDS ORDERED: DILTIAZEM HCL 180 MG PO SCH (09:00)
[2017-06-09] MEDS ORDERED: DILTIAZEM HCL CD 180 MG CAP.SR.24H PO SCH (09:00)
[2017-06-09] MEDS ORDERED: FUROSEMIDE 20 MG TABLET PO SCH (09:00)
[2017-06-09 11:34] VITALS: BP 119/69
[2017-06-09] MEDS: INSULIN REGULAR, HUMAN 300 UNIT/3 ML VIAL SQ PRN ×2 (11:42→20:27)
[2017-06-09] MEDS: DIGOXIN 125 MCG TABLET PO SCH (13:00)
[2017-06-09 15:46] VITALS: BP_SYST 119; BP_SYST 90; BP_DIAS 53; BP_DIAS 77
--- NOTE | 2017-06-09 18:00 | NUR ---
Patient is alert, in no distress, no SOB. Patient is on tele monitor A fib, VS stable, afebrile. Safety measures in place, call light within reach. Will continue to monitor.
--- NOTE | 2017-06-09 19:30 | NUR ---
PT IN ROOM ALERT AWAKE AND ORIENTED IN NO ACUTE DISTRESS. ABLE TO FOLLOW SIMPLE COMMANDS WITHOUT DIFFICULTY. BP 115/72 AND HR 67 ON WINDING INSPECTOR AND TESTER. CONTINUE TO MONITOR. CALL LIGHT PLACED WITHIN REACH. PT AWARE TO ASK FOR ASISSTANCE WHEN NEEDED.
[2017-06-09 20:00] VITALS: BP 115/72
[2017-06-09] MEDS: ATORVASTATIN 10 MG TABLET PO SCH (20:25)
[2017-06-10] VITALS: BP 113/64
--- NOTE | 2017-06-10 01:00 | NUR ---
PT IN ROOM ASLEEP IN NO ACUTE DISTRESS. DESK SERGEANT MAINTAINING CONTROLLED A-FIB WITH HR 58 BPM. CONTINUE TO MONITOR. CALL LIGHT PLACED WITHIN REACH.
[2017-06-10 04:00] VITALS: BP 123/77
--- NOTE | 2017-06-10 06:00 | NUR ---
PT IN ROOM ALERT AWAKE IN NO ACUTE DISTRESS. WEEDER MAINTAINING CONTROLLED A-FIB. DENIES ANY CHEST PAIN OR SOB. NO S/S OF HYPER/HYPOGLYCEMIA. HR NOTED 77. CONTINUE TO MONITOR. CALL LIGHT PLACED WITHIN REACH.
[2017-06-10] MEDS: BLOOD SUGAR DIAGNOSTIC 1 EACH STRIP VI SCH ×2 (06:54→11:40)
[2017-06-10 08:00] VITALS: BP 118/70
--- NOTE | 2017-06-10 08:00 | NUR ---
Pt awake, sitting up in bed. A&Ox4. On RA, 96% O2Sat. Denies cough. Afebrile at 97.6 (oral). Admitted for CHF with cardiac arrhythmias. On tele monitoring, showing controlled afib with rate of 80. Call light and belongings within reach. Denies pain. BRP. Appears comfortable at this time. Will continue to monitor.
[2017-06-10] MEDS: FUROSEMIDE 20 MG/2 ML VIAL IV SCH (08:35)
[2017-06-10] MEDS: DONEPEZIL 5 MG TABLET PO SCH (08:37)
[2017-06-10] MEDS: METFORMIN HCL 500 MG TABLET PO SCH (08:37)
[2017-06-10] MEDS: ASPIRIN EC 81 MG TABLET.DR PO SCH (08:37)
[2017-06-10] MEDS ORDERED: METOPROLOL TARTRATE 50 MG TABLET PO SCH (09:00)
[2017-06-10] MEDS ORDERED: DILTIAZEM HCL CD 240 MG CAP.SR.24H PO SCH (09:00)
[2017-06-10 11:21] VITALS: BP 113/93
--- NOTE | 2017-06-10 11:30 | NUR ---
FSBS performed, pt BS is 156. Per sliding scale pt to receive 2 units of Reg insulin. Notified pt and pt preferred not to receive the insulin because per pt she is nauseous and does not have any appetite for lunch. Offered Zofran IV PRN however, pt stated she prefers not to take anything for the nausea. Educated pt on risks vs benefits. Pt stated she would just like to eat when she gets home. Offered crackers and gingerale and pt agreed. Pt verbalized understanding. Will continue to monitor.
[2017-06-10] MEDS: INSULIN REGULAR, HUMAN 300 UNIT/3 ML VIAL SQ PRN (11:48)
[2017-06-10] MEDS: DIGOXIN 125 MCG TABLET PO SCH (13:12)
[2017-06-10] MEDS ORDERED: METO50TA16 PO (14:20)
[2017-06-10] MEDS ORDERED: DILT240C64 PO (14:20)
--- NOTE | 2017-06-10 15:30 | NUR ---
Patient discharged to home. Discharge instructions/teachings provided, patient verbalized understanding. Patient will be picked up by her neighbour/friend.
[2017-06-10 15:42] VITALS: BP 112/62
--- NOTE | 2017-06-10 16:00 | NUR ---
Tele monitor, IV access, ID band removed.
--- NOTE | 2017-06-10 16:15 | NUR ---
Patient left the unit via wheelchair, accompanied by friend and RN. Patient has been feeling nauseous, refusing anti-nausea prn medication. Patient is anxious to leave the hospital and go home. While at the lobby waiting for her friend to get the car to the entrance driveway, patient vomited moderate amount of contents of soda crackers and carbonated gingerale which she consumed 30 minutes prior to leaving the unit. Offered patient to stay in the hospital until she feels ready and until her nausea subsides, patient verbalized understanding but patient was determined to go home.
[2017-06-24] MEDS ORDERED: CARV3.12 PO (15:43)
[2017-06-24] MEDS ORDERED: FURO20TA4 PO (15:43)
[2017-06-24] MEDS ORDERED: LISI-607 PO (15:43)
== END 2017-06-10 16:10 | disposition home or self-care (01) | DRG 292 ==
LOC: ER 09:50 → TELE 11:57
PROVIDERS: ADMIT Internal Medicine; ATTEND Internal Medicine
DX: I11.0 Hypertensive heart disease with heart failure (principal); I50.23 Acute on chronic systolic (congestive) heart failure; I48.2 Chronic atrial fibrillation; E87.2 Acidosis; I27.20 Pulmonary hypertension, unspecified; I08.1 Rheumatic disorders of both mitral and tricuspid valves; J44.9 Chronic obstructive pulmonary disease, unspecified; F03.90 Unspecified dementia, unspecified severity, without behavioral disturbance, psychotic disturbance, mood disturbance, and anxiety; Z79.01 Long term (current) use of anticoagulants; E78.5 Hyperlipidemia, unspecified; E11.9 Type 2 diabetes mellitus without complications; Z79.84 Long term (current) use of oral hypoglycemic drugs; Z79.82 Long term (current) use of aspirin; Z79.899 Other long term (current) drug therapy; Z95.818 Presence of other cardiac implants and grafts
CPT/HCPCS: 36415; 70030-TC; 71045; 83605; 83735; 84100; 85025; 85730; 87040; 93005; 93307; A4663; J1815; J1940; J3490; J7030

== ENCOUNTER 2017-06-20 12:56 | Inpatient (IN) | payer MEDICARE, OTHER ==
[~2017-06-20] VITALS: Ht 162.6 cm; Wt 57.8 kg
[~2017-06-20 12:56] MED LIST changes: -LEVO500T2 PO
[2017-06-20 14:40] LABS: BASOPHILS # (AUTO) 0.1 K/uL (0.0-8.0); BASOPHILS % (AUTO) 0.7 % (0.0-2.0); EOSINOPHILS % (AUTO) 0.1 % (0.0-7.0); HEMATOCRIT 42.8 % (31.2-41.9); HEMOGLOBIN 14.2 g/dL (10.9-14.3); LYMPHOCYTES # (AUTO) 1.2 K/uL (20.0-40.0); LYMPHOCYTES % (AUTO) 12.7 % (20.5-51.5); MEAN CORPUSCULAR HEMOGLOBIN 30.1 uug (24.7-32.8); MEAN CORPUSCULAR HGB CONC 33 g/dL (32.3-35.6); MEAN CORPUSCULAR VOLUME 91.1 fL (75.5-95.3); MONOCYTES # (AUTO) 0.3 K/uL (2.0-10.0); MONOCYTES % (AUTO) 2.9 % (0.0-11.0); NEUTROPHILS # (AUTO) 7.6 K/uL (1.8-8.9); NEUTROPHILS % (AUTO) 83.6 % (38.5-71.5); PLATELET COUNT (AUTO) 206 K/uL (179-408); WHITE BLOOD COUNT (AUTO) 9.1 K/uL (3.8-11.8)
[2017-06-20 14:44] LABS: CARBON DIOXIDE 27 mmol/L (21-32); CHLORIDE 102 mmol/L (98-107); CREATININE 0.9 mg/dL (0.6-1.3); GLUCOSE 268 mg/dL (74-106); POTASSIUM 5.1 mmol/L (3.5-5.1); UREA NITROGEN, BLOOD 14 mg/dL (7-18)
[2017-06-20 14:46] LABS: *BILIRUBIN,URIN NEGATIVE (NEGATIVE); *BLOOD, URINE NEGATIVE (NEGATIVE); *CLARITY,URINE CLEAR (CLEAR); *COLOR,URINE YELLOW (YELLOW); *KETONES,URINE NEGATIVE (NEGATIVE); *PROTEIN,URINE NEGATIVE (NEGATIVE); *UROBILINOGEN,URINE 0.2 E.U./dl (NORMAL); LEUKOCYTE ESTERASE ,URINE NEGATIVE (NEGATIVE); NITRITE, URINE NEGATIVE (NEGATIVE)
[2017-06-20 14:50] LABS: ALANINE AMINOTRANSFERASE 70 U/L (14-59); ALKALINE PHOSPHATASE 108 U/L (50-136); ASPARTATE AMINOTRANSFERASE 41 U/L (15-37); BILIRUBIN,TOTAL 0.9 mg/dL (0.2-1.0); TOTAL PROTEIN, SERUM 7.3 g/dL (6.4-8.2)
[2017-06-20 14:55] LABS: UGLUCOSE 2+ (NEGATIVE)
[2017-06-20 15:07] LABS: RBC,URINE 0-3 /HPF (0-3); SQUAMOUS EPITHELIAL CELL,UR MODERATE /HPF (NONE SEEN)
[2017-06-20] MEDS ORDERED: DIGO125T PO (15:25)
[2017-06-20] MEDS ORDERED: CEFTRIAXONE 1 G VIAL ONE (15:29)
[2017-06-20] MEDS ORDERED: IPRATROPIUM BROMIDE 0.5 MG/2.5 ML NEBU NEB ONE (15:30)
[2017-06-20] MEDS ORDERED: CEFTRIAXONE 1 G in IV DEXTROSE 5% 50 ML IV ONE (15:30)
[2017-06-20] MEDS ORDERED: ALBUTEROL SULFATE 2.5 MG/ 0.5 ML NEBU NEB ONE (15:30)
[2017-06-20] MEDS ORDERED: FUROSEMIDE 20 MG/2 ML VIAL IV ONE (15:30)
[2017-06-20] MEDS ORDERED: IPRATROPIUM BROMIDE 0.5 MG/2.5 ML NEBU ONE (15:45)
[2017-06-20] MEDS ORDERED: ALBUTEROL SULFATE 2.5 MG/ 0.5 ML NEBU ONE (15:45)
--- NOTE | 2017-06-20 16:40 | NUR ---
PT TRANSFERED TO FLOOR IN STABLE CONDITION.
--- NOTE | 2017-06-20 17:00 | NUR ---
Received patient from ER. Patient does not appear to be in any immediate distress at this time. Orientation to room given and instructions on calling nursing station.
[2017-06-20 17:07] VITALS: BP 144/74
[2017-06-20] MEDS ORDERED: PNEUMOCOCCAL 23-VAL P-SAC VAC 0.5 ML VIAL IM ONE (18:30)
[2017-06-20] MEDS ORDERED: TEMAZEPAM 15 MG CAPSULE PO PRN (18:30)
[2017-06-20] MEDS ORDERED: LEVOFLOXACIN 500 MG/D5W 500 MG in PREMIXED 1 EACH IV SCH (18:30)
[2017-06-20] MEDS ORDERED: ONDANSETRON 4 MG/2 ML VIAL IV PRN (18:30)
[2017-06-20] MEDS ORDERED: ALBUTEROL SULFATE 2.5 MG/3 ML NEBU NEB PRN (18:30)
[2017-06-20] MEDS ORDERED: HYDROCODONE/APAP 5-325MG TABLET PO PRN (18:30)
[2017-06-20] MEDS ORDERED: LEVOFLOXACIN 500 MG/D5W 500 MG in PREMIXED 1 EACH IV ONE (18:30)
[2017-06-20] MEDS ORDERED: ACETAMINOPHEN 325 MG TABLET PO PRN (18:30)
[2017-06-20] MEDS ORDERED: DEXTROSE 50% 50 ML DISP.SYRIN IV PRN (18:30)
[2017-06-20] MEDS ORDERED: MAGNESIUM HYDROXIDE 30 ML LIQUID UDC PO PRN (18:30)
--- NOTE | 2017-06-20 19:30 | NUR ---
RECEIVED IN BED ALERT ORIENTED, NO SOB NO CHEST PAIN, RYTHM SINUS FLUTTER, NO COMPLAIN OF PAIN CONT TO MONITOR.
--- NOTE | 2017-06-20 19:34 | NUR ---
PATIENT HAS BEEN COOPERATIVE WITH CARE. ADMISSION QUESTIONNAIRE COMPLETED, PATIENTS DPOA WILL BRING IN ADVANCE DIRECTIVES TOMORROW. PATIENT DOES NOT WANT EXTREME MEASURES AND WANTS COMPRESSIONS BUT NOT INTUBATION.
[2017-06-20 20:00] VITALS: BP 137/62
[2017-06-20] MEDS: DOCUSATE SODIUM 100 MG CAPSULE PO SCH (20:57)
[2017-06-20] MEDS: FUROSEMIDE 20 MG/2 ML VIAL IV SCH (20:57)
[2017-06-20] MEDS ORDERED: ENOXAPARIN SODIUM 40 MG/0.4 ML DISP.SYRIN SQ SCH (21:00)
[2017-06-20] MEDS ORDERED: INFLUENZA VACCINE 2017-2018 0.5 ML DISP.SYRIN IM ONE (21:00)
[2017-06-20] MEDS: BLOOD SUGAR DIAGNOSTIC 1 EACH STRIP VI SCH (21:09)
[2017-06-20] MEDS: INSULIN REGULAR, HUMAN 300 UNIT/3 ML VIAL SQ PRN (21:12)
[2017-06-21] MEDS ORDERED: GUAIFENESIN/DEXTROMETHORPHAN 5 ML UDC PO PRN (00:15)
[2017-06-21 00:35] VITALS: BP 128/68
[2017-06-21 04:28] VITALS: BP 132/80
[2017-06-21 06:26] LABS: BASOPHILS # (AUTO) 0.1 K/uL (0.0-8.0); BASOPHILS % (AUTO) 0.7 % (0.0-2.0); EOSINOPHILS # (AUTO) 0.2 K/uL (0.0-0.7); EOSINOPHILS % (AUTO) 2.1 % (0.0-7.0); HEMOGLOBIN 13.4 g/dL (10.9-14.3); LYMPHOCYTES # (AUTO) 2.4 K/uL (20.0-40.0); LYMPHOCYTES % (AUTO) 27.6 % (20.5-51.5); MEAN CORPUSCULAR HEMOGLOBIN 30.2 uug (24.7-32.8); MEAN CORPUSCULAR HGB CONC 33 g/dL (32.3-35.6); MEAN CORPUSCULAR VOLUME 90.5 fL (75.5-95.3); MONOCYTES # (AUTO) 0.7 K/uL (2.0-10.0); MONOCYTES % (AUTO) 7.6 % (0.0-11.0); NEUTROPHILS # (AUTO) 5.3 K/uL (1.8-8.9); PLATELET COUNT (AUTO) 198 K/uL (179-408); RED BLOOD CELL COUNT(AUTO) 4.42 MIL/uL (3.63-4.92); WHITE BLOOD COUNT (AUTO) 8.6 K/uL (3.8-11.8)
[2017-06-21] MEDS: BLOOD SUGAR DIAGNOSTIC 1 EACH STRIP VI SCH ×4 (06:33→21:19)
[2017-06-21 06:37] LABS: ALANINE AMINOTRANSFERASE 51 U/L (14-59); ALKALINE PHOSPHATASE 89 U/L (50-136); ASPARTATE AMINOTRANSFERASE 37 U/L (15-37); BILIRUBIN,TOTAL 0.9 mg/dL (0.2-1.0); CARBON DIOXIDE 27 mmol/L (21-32); CHLORIDE 103 mmol/L (98-107); CHOLESTEROL 120 mg/dL (<200); GLUCOSE 152 mg/dL (74-106); HDL CHOLESTEROL 50 mg/dL (40-60); MAGNESIUM 1.9 mg/dL (1.8-2.4); PHOSPHOROUS 3.2 mg/dL (2.5-4.9); POTASSIUM 4.1 mmol/L (3.5-5.1); TOTAL PROTEIN, SERUM 6.5 g/dL (6.4-8.2); TRIGLYCERIDES 181 MG/DL (30-150); UREA NITROGEN, BLOOD 15 mg/dL (7-18)
[2017-06-21 06:39] LABS: DIGOXIN 0.8 ng/mL (0.9-2.0)
[2017-06-21 06:47] LABS: THYROID STIMULATING HORMONE 1.406 mIU/mL (0.358-3.740)
--- NOTE | 2017-06-21 07:03 | NUR ---
PATIENT SLEPT MOST OF THE NIGHT, NO SOB NO CHEST PAIN NO COMPLAIN OF PAIN, RYTHM A FLUTTER, KEPT CLEAN AND DRY, NO S/S OF HYPO/ HYPERGLYCEMIA NOTED,. CONT TO MONITOR.
--- NOTE | 2017-06-21 07:10 | NUR ---
received report from ballistics expert forensic nurse, patient in bed asleep, no evidence of distress noted, bed in low position, side rails up x2.
[2017-06-21] MEDS: DIGOXIN 125 MCG TABLET PO SCH (08:48)
[2017-06-21] MEDS: METFORMIN HCL 500 MG TABLET PO SCH ×2 (08:48→19:01)
[2017-06-21] MEDS: FUROSEMIDE 20 MG/2 ML VIAL IV SCH ×2 (08:49→20:41)
[2017-06-21] MEDS: DILTIAZEM HCL CD 180 MG CAP.SR.24H PO SCH (08:49)
[2017-06-21] MEDS ORDERED: ASPIRIN EC 81 MG TABLET.DR PO SCH (09:00)
[2017-06-21] MEDS ORDERED: METOPROLOL TARTRATE 25 MG TABLET PO SCH (09:00)
[2017-06-21] MEDS ORDERED: FUROSEMIDE 20 MG TABLET PO SCH (09:00)
[2017-06-21] MEDS ORDERED: DILTIAZEM HCL 180 MG PO SCH (09:00)
[2017-06-21 11:36] VITALS: BP 123/74
[2017-06-21] MEDS ORDERED: TEMAZEPAM 7.5 MG CAPSULE PO PRN (12:00)
[2017-06-21] MEDS: INSULIN REGULAR, HUMAN 300 UNIT/3 ML VIAL SQ PRN ×2 (12:02→20:45)
[2017-06-21 15:44] VITALS: BP 128/66
[2017-06-21] MEDS ORDERED: POTASSIUM CHLORIDE 20 MEQ TAB.PRT.SR PO ONE (16:15)
[2017-06-21] MEDS ORDERED: RIVAROXABAN 10 MG TABLET PO SCH (18:00)
[2017-06-21] MEDS ORDERED: RIVAROXABAN 15 MG TABLET PO SCH ×2 (18:00)
[2017-06-21] MEDS: CARVEDILOL 6.25 MG TABLET PO SCH (19:01)
[2017-06-21] MEDS: RIVAROXABAN 15 MG TABLET PO SCH (19:02)
[2017-06-21] MEDS: LEVOFLOXACIN 250MG /D5W 250 MG in PREMIXED 1 EACH IV SCH (19:15)
--- NOTE | 2017-06-21 19:23 | NUR ---
Patient has been cooperative with care. No distress noted throughout the day. All medications complied with and additional meals brought in by significant other. Patient in bed, bed in low position, side rails up x2.
[2017-06-21 20:00] VITALS: BP 125/68
[2017-06-21] MEDS: DOCUSATE SODIUM 100 MG CAPSULE PO SCH (21:00)
[2017-06-22] VITALS: BP 106/66
[2017-06-22 04:00] VITALS: BP 95/54
[2017-06-22] MEDS: BLOOD SUGAR DIAGNOSTIC 1 EACH STRIP VI SCH ×4 (06:25→20:35)
--- NOTE | 2017-06-22 06:27 | NUR ---
Pt has rested well overnight, no complaints of shortness of breath or pain, no cough noted. MAEW. Calm, cooperative and pleasant. No acute changes in ongoing patient assessment noted. Continue to monitor for pt safety.
--- NOTE | 2017-06-22 07:10 | NUR ---
Received pt. in bed and easily arousable with no apparent s/s of pain, distress, discomfort, or SOB. Alert and oriented times 4 and can verbalizes her needs.
[2017-06-22] MEDS: CARVEDILOL 6.25 MG TABLET PO SCH ×2 (08:07→17:14)
[2017-06-22] MEDS: METFORMIN HCL 500 MG TABLET PO SCH ×2 (08:07→17:15)
[2017-06-22] MEDS: FUROSEMIDE 20 MG/2 ML VIAL IV SCH (08:13)
[2017-06-22] MEDS: INSULIN REGULAR, HUMAN 300 UNIT/3 ML VIAL SQ PRN ×2 (08:15→12:35)
[2017-06-22] MEDS: LISINOPRIL 5 MG TABLET PO SCH (09:00)
[2017-06-22] MEDS: DILTIAZEM HCL CD 180 MG CAP.SR.24H PO SCH (09:00)
[2017-06-22] MEDS: DIGOXIN 125 MCG TABLET PO SCH (09:43)
[2017-06-22 11:56] VITALS: BP 97/48
[2017-06-22 16:00] VITALS: BP 101/62
[2017-06-22] MEDS: FUROSEMIDE 20 MG TABLET PO SCH (17:15)
[2017-06-22] MEDS: LEVOFLOXACIN 250MG /D5W 250 MG in PREMIXED 1 EACH IV SCH (17:16)
[2017-06-22] MEDS: RIVAROXABAN 15 MG TABLET PO SCH (17:16)
--- NOTE | 2017-06-22 19:25 | NUR ---
AAOX4. DENIES ANY PAIN OR SOB AT THIS TIME. O2 AT 2LPM VIA NC IN PLACE. NOT IN ACUTE DISTRESS. IV SITE ON RFA INTACT AND PATENT. A FIB. ON TELE. SAFETY MEASURE INITIATED AND CALL CHERRY WITHIN REACH.
[2017-06-22] MEDS: DOCUSATE SODIUM 100 MG CAPSULE PO SCH (20:35)
[2017-06-22 20:59] VITALS: BP 121/61
[2017-06-23] VITALS: BP 100/56
--- NOTE | 2017-06-23 | NUR ---
AOX4. AWAKE INTERMITTENTLY. DENIES ANY PAIN SOB. ON O2 AT 3LPM VIA NC IN PLACE. O2 SAT AT 97%. A. FIB. ON TELE. SAFETY MEASURE MAINTAINED AND CALL CHERRY WITHIN REACH.
[2017-06-23 05:18] VITALS: BP 115/78
--- NOTE | 2017-06-23 06:01 | NUR ---
AAOX4. DENIES ANY PAIN OR SOB. O2 AT 3LPM VIA NC IN PLACE. O2 SAT 98%. NOT IN ACUTE DISTRESS. IV SITE ON RFA INTACT AND PATENT. A FIB. ON TELE. SAFETY MEASURE MAINTAINED AND CALL CHERRY WITHIN REACH.
[2017-06-23 06:15] LABS: BASOPHILS # (AUTO) 0.1 K/uL (0.0-8.0); BASOPHILS % (AUTO) 0.4 % (0.0-2.0); EOSINOPHILS # (AUTO) 0.1 K/uL (0.0-0.7); EOSINOPHILS % (AUTO) 1.2 % (0.0-7.0); HEMATOCRIT 43.2 % (31.2-41.9); HEMOGLOBIN 14.3 g/dL (10.9-14.3); LYMPHOCYTES # (AUTO) 1.5 K/uL (20.0-40.0); MEAN CORPUSCULAR HEMOGLOBIN 29.7 uug (24.7-32.8); MEAN CORPUSCULAR HGB CONC 33 g/dL (32.3-35.6); MEAN CORPUSCULAR VOLUME 89.6 fL (75.5-95.3); MONOCYTES # (AUTO) 1.1 K/uL (2.0-10.0); MONOCYTES % (AUTO) 9.2 % (0.0-11.0); NEUTROPHILS # (AUTO) 8.9 K/uL (1.8-8.9); NEUTROPHILS % (AUTO) 76.2 % (38.5-71.5); PLATELET COUNT (AUTO) 200 K/uL (179-408); RED BLOOD CELL COUNT(AUTO) 4.82 MIL/uL (3.63-4.92); WHITE BLOOD COUNT (AUTO) 11.6 K/uL (3.8-11.8)
[2017-06-23 06:29] LABS: CARBON DIOXIDE 29 mmol/L (21-32); CHLORIDE 99 mmol/L (98-107); GLUCOSE 141 mg/dL (74-106); MAGNESIUM 1.7 mg/dL (1.8-2.4); PHOSPHOROUS 4.1 mg/dL (2.5-4.9); POTASSIUM 3.7 mmol/L (3.5-5.1); UREA NITROGEN, BLOOD 25 mg/dL (7-18)
[2017-06-23] MEDS: BLOOD SUGAR DIAGNOSTIC 1 EACH STRIP VI SCH ×4 (06:36→21:07)
--- NOTE | 2017-06-23 07:00 | NUR ---
received patient on bed asleep and o x 4, no acute distress noted. has been complaining of left hip and leg muscle spasm, hot pack seems to help per retail shift supervisor. iv access intact and patent on right forearm #22. comfort measures provided. call light within reach will continue to monitor.
[2017-06-23] MEDS: INSULIN REGULAR, HUMAN 300 UNIT/3 ML VIAL SQ PRN ×3 (08:22→16:30)
[2017-06-23] MEDS: FUROSEMIDE 20 MG TABLET PO SCH ×2 (08:23→17:42)
[2017-06-23] MEDS: METFORMIN HCL 500 MG TABLET PO SCH ×2 (08:23→17:42)
[2017-06-23] MEDS: CARVEDILOL 6.25 MG TABLET PO SCH ×2 (08:24→18:00)
[2017-06-23] MEDS: DIGOXIN 125 MCG TABLET PO SCH (08:24)
[2017-06-23] MEDS: LISINOPRIL 5 MG TABLET PO SCH (08:24)
[2017-06-23] MEDS: DILTIAZEM HCL CD 180 MG CAP.SR.24H PO SCH (08:25)
[2017-06-23 11:21] VITALS: BP 154/61
[2017-06-23] MEDS ORDERED: MAGNESIUM OXIDE 400 MG TABLET PO ONE (13:15)
[2017-06-23] MEDS ORDERED: POTASSIUM CHLORIDE 20 MEQ TAB.PRT.SR PO ONE (13:15)
[2017-06-23 15:30] VITALS: BP 110/65
[2017-06-23] MEDS: LEVOFLOXACIN 250MG /D5W 250 MG in PREMIXED 1 EACH IV SCH (17:44)
[2017-06-23] MEDS ORDERED: RIVAROXABAN 10 MG TABLET PO SCH (18:00)
--- NOTE | 2017-06-23 19:25 | NUR ---
AAOX4. DENIES ANY PAIN OR SOB. O2 AT 3LPM VIA NC IN PLACE. NOT IN ACUTE DISTRESS. IV SITE ON RFA INTACT AND PATENT. A FIB. ON TELE. SAFETY MEASURE INITIATED AND CALL CHERRY WITHIN REACH.
[2017-06-23 20:00] VITALS: BP_SYST 122; BP_DIAS 89; BP_DIAS 99
--- NOTE | 2017-06-23 21:00 | NUR ---
PT VOMITED SMALL AMOUNT OF GASTRIC CONTENT X1. OFFERED ZOFRAN BUT PT DECLINED. STATED SHE FEELS BETTER. CONTINUE TO MONITOR.
[2017-06-23] MEDS: DOCUSATE SODIUM 100 MG CAPSULE PO SCH (21:02)
--- NOTE | 2017-06-23 23:45 | NUR ---
OBTAINED URINE SPECIMEN FOR URINALYSIS AND CULTURE AND SENT TO LAB. NO FURTHER VOMITING AT THIS TIME.
--- NOTE | 2017-06-24 | NUR ---
AOX4. AWAKE INTERMITTENTLY. DENIES ANY PAIN OR SOB. ON O2 AT 3LPM VIA NC IN PLACE. A. FIB. AND A FLUTTER ON TELE. NOT IN ACUTE DISTRESS. SAFETY MEASURE MAINTAINED AND CALL CHERRY WITHIN REACH.
[2017-06-24 00:15] LABS: *BILIRUBIN,URIN NEGATIVE (NEGATIVE); *BLOOD, URINE NEGATIVE (NEGATIVE); *CLARITY,URINE CLEAR (CLEAR); *COLOR,URINE AMBER (YELLOW); *KETONES,URINE NEGATIVE (NEGATIVE); *PROTEIN,URINE NEGATIVE (NEGATIVE); *UROBILINOGEN,URINE 0.2 E.U./dl (NORMAL); LEUKOCYTE ESTERASE ,URINE NEGATIVE (NEGATIVE); NITRITE, URINE NEGATIVE (NEGATIVE); UGLUCOSE NEGATIVE (NEGATIVE)
[2017-06-24 00:35] VITALS: BP 120/72
[2017-06-24 00:46] LABS: RBC,URINE 0-3 /HPF (0-3); WBC,URINE 0-3 /HPF (0-3)
[2017-06-24 00:47] LABS: BACTERIA,URINE NONE SEEN /HPF (NONE SEEN); SQUAMOUS EPITHELIAL CELL,UR MANY /HPF (NONE SEEN)
[2017-06-24 04:00] VITALS: BP 111/46
--- NOTE | 2017-06-24 06:10 | NUR ---
AAOX4. DENIES ANY MUSCLE SPASM, PAIN OR SOB. NO FURTHER VOMITING. O2 AT 3LPM VIA NC IN PLACE. O2 SAT 97%. NOT IN ACUTE DISTRESS. IV SITE ON RFA REMAINS INTACT AND PATENT. ELKIN RUELAS ON TELE. SAFETY MEASURE MAINTAINED AND CALL CHERRY WITHIN REACH.
[2017-06-24] MEDS: BLOOD SUGAR DIAGNOSTIC 1 EACH STRIP VI SCH ×2 (06:30→11:53)
[2017-06-24 07:55] VITALS: BP 95/49
[2017-06-24] MEDS: LISINOPRIL 5 MG TABLET PO SCH (08:23)
[2017-06-24] MEDS: CARVEDILOL 6.25 MG TABLET PO SCH (08:23)
[2017-06-24] MEDS: DILTIAZEM HCL CD 180 MG CAP.SR.24H PO SCH (08:24)
[2017-06-24] MEDS: FUROSEMIDE 20 MG TABLET PO SCH (08:24)
[2017-06-24] MEDS: METFORMIN HCL 500 MG TABLET PO SCH (08:24)
[2017-06-24] MEDS: DIGOXIN 125 MCG TABLET PO SCH (08:25)
[2017-06-24 11:41] VITALS: BP 100/54
[2017-06-24] MEDS: INSULIN REGULAR, HUMAN 300 UNIT/3 ML VIAL SQ PRN (11:50)
--- NOTE | 2017-06-24 14:05 | NUR ---
Report given to Olimpia Iraheta pending orders endorse. vital signs stable.
--- NOTE | 2017-06-24 14:10 | NUR ---
RESTING WELL IN BED NO SOB CONTINUE O2 AT 3L /MIN ON FALL AND ASPIRATION PRECAUTION CALL LIGHT IN REACH
[2017-06-24 15:16] VITALS: BP 96/57
[2017-06-24] MEDS ORDERED: LISI-607 PO (15:43)
[2017-06-24] MEDS ORDERED: CARV3.12 PO (15:43)
[2017-06-24] MEDS ORDERED: FURO20TA4 PO (15:43)
--- NOTE | 2017-06-24 15:45 | NUR ---
DR ADAMS SEEN PATIENT AND ORDER TO D/C HOME WITH HOME HEALTH TO F/U PATIENT WAS INFORM ,AWARE OF DISCHARGE
--- NOTE | 2017-06-24 17:00 | NUR ---
d/c instruction regarding f/u with own pmd continue home medicione as ORDER AND EDUCATION PK GIVEN TO PATIENT AND FAMILY PHAMACY INSTRUCTION ON HOME MED PRIOR D/C HOME TODAY ,VERBALIZES UNDERSTAND AND SIGNS D/C SHEET HL WAS DISCONTINUE PRIOR D/C HOME
--- NOTE | 2017-06-24 17:30 | NUR ---
REFUSED TO EAT DINNER AND ACCU CHECK ALSO STATE WILL TAKE PM MEDICATION AT HOME
--- NOTE | 2017-06-24 17:45 | NUR ---
D/C HOME WITH HER BELONGING CONDITION STABLE NO SOB OR PAIN RA O2 SAT WAS 95% PATIENT DOES NOT NEED O2
[2017-06-24] MEDS ORDERED: RIVAROXABAN 15 MG TABLET PO SCH (18:00)
[2017-06-24] MEDS ORDERED: CARVEDILOL 6.25 MG TABLET PO SCH (18:00)
== END 2017-06-24 17:45 | disposition home health service (06) | DRG 291 ==
LOC: ER 12:56 → TELE 17:05
PROVIDERS: ADMIT Internal Medicine; ATTEND Internal Medicine
DX: I11.0 Hypertensive heart disease with heart failure (principal); J18.9 Pneumonia, unspecified organism; E44.0 Moderate protein-calorie malnutrition; E11.65 Type 2 diabetes mellitus with hyperglycemia; I48.2 Chronic atrial fibrillation; E83.42 Hypomagnesemia; I08.1 Rheumatic disorders of both mitral and tricuspid valves; I27.20 Pulmonary hypertension, unspecified; I42.9 Cardiomyopathy, unspecified; I48.92 Unspecified atrial flutter; I50.43 Acute on chronic combined systolic (congestive) and diastolic (congestive) heart failure; E78.5 Hyperlipidemia, unspecified; Z68.21 Body mass index [BMI] 21.0-21.9, adult; Z79.82 Long term (current) use of aspirin; Z79.84 Long term (current) use of oral hypoglycemic drugs; Z79.899 Other long term (current) drug therapy; F03.90 Unspecified dementia, unspecified severity, without behavioral disturbance, psychotic disturbance, mood disturbance, and anxiety; I44.7 Left bundle-branch block, unspecified
CPT/HCPCS: 36415; 70030-TC; 71045; 83735; 84100; 84443; 85025; 87040; 87086; 93005; A4663; J0696; J1650; J1815; J1940; J1956; J3490; J3590